=== PATIENT | male | born 1945 | race American Indian/Alaskan Native ===

== ENCOUNTER 2017-09-29 10:08 | Emergency (ER) | payer MEDICARE ==
[2017-09-29 11:37] LABS: Basophils % (Auto) 0.6 % (0.0-1.8); Eosinophils % (Auto) 1.1 % (0.0-4.3); Hematocrit 46.1 % (35.5-45.6); Hemoglobin 15.5 gm/dl (11.8-15.2); Mean Corpuscular HGB Conc 34 % (32-34); Mean Corpuscular Hemoglobin 34 pg (28-32); Mean Corpuscular Volume 100 fl (84-94); Platelet Count 211 K/mm3 (140-440); Red Cell Distribution Width 13.1 % (13.2-15.2); White Blood Count 6.5 K/mm3 (4.5-11.0)
[2017-09-29 11:47] LABS: Alanine Aminotransferase 10 units/L (7-56); Albumin 4.3 g/dL (3.9-5); Albumin/Globulin Ratio 1.1 %; Alkaline Phosphatase 71 units/L (35-129); Anion Gap 14 mmol/L; BUN/Creatinine Ratio 11; Blood Urea Nitrogen 16 mg/dL (9-20); Calcium 9.7 mg/dL (8.4-10.2); Carbon Dioxide 30 mmol/L (22-30); Glucose 100 mg/dL (75-100); Sodium 136 mmol/L (137-145); Total Protein 8.3 g/dL (6.3-8.2)
[2017-09-29 12:27] LABS: Erythrocyte Sedimentation Rate 6 mm/Hr (0-20)
[2017-09-29] MEDS ORDERED: ZOFRAN IM ONE (17:28)
[2017-09-29] MEDS ORDERED: MORPHINE IM ONE (17:28)
--- NOTE | 2017-09-29 17:34 | Emergency Department Report ---
ED Extremity Problem HPI - General Chief complaint: Extremity Injury, Lower Stated complaint: KNEE PAIN Time Seen by Provider: 09/29/17 17:27 Source: patient Mode of arrival: Wheelchair Limitations: Physical Limitation - History of Present Illness MD Complaint: extremity pain, extremity swelling -: Gradual Location: left, knee History of Same: No -: No arthralgia, No fever, No associated dyspnea, No associated chest pain Severity scale (0 -10): 7 Consistency: constant Worsens with: weight bearing - Related Data Allergies Allergy/AdvReac Type Severity Reaction Status Date / Time No Known Allergies Allergy Unverified 09/29/17 11:00 ED Review of Systems ROS: Stated complaint: KNEE PAIN Other details as noted in HPI Comment: All other systems reviewed and negative Constitutional: denies: chills, fever Respiratory: denies: cough, orthopnea, shortness of breath, SOB with exertion, SOB at rest, wheezing Cardiovascular: denies: chest pain, palpitations, dyspnea on exertion, orthopnea , paroxysmal nocturnal dyspnea Gastrointestinal: denies: abdominal pain, nausea, vomiting, diarrhea, constipation, hematemesis, melena, hematochezia Musculoskeletal: joint swelling, other (left knee is swollen, nontender to palpation, full range of motion, no erythema or warmness.). denies: back pain Neurological: denies: headache, weakness, numbness, paresthesias, abnormal gait ED Past Medical Hx - Past Medical History Hx Hypertension: Yes Additional medical history: CAD HYPERLIPIDEMIA CHRONIC RENAL DIESASE STAGE 4 - Surgical History Hx Coronary Stent: Yes Additional Surgical History: HERNIA CATARACT - Social History Smoking Status: Never Smoker Substance Use Type: None ED Physical Exam - General Limitations: No Limitations, Physical Limitation General appearance: alert, in no apparent distress - Head Head exam: Present: atraumatic, normocephalic - Eye Eye exam: Present: normal appearance, PERRL - ENT ENT exam: Present: normal exam, mucous membranes moist - Neck Neck exam: Present: normal inspection, full ROM. Absent: tenderness, meningismus - Respiratory Respiratory exam: Present: normal lung sounds bilaterally, respiratory distress , chest wall tenderness - Cardiovascular Cardiovascular Exam: Present: regular rate, normal rhythm, normal heart sounds - GI/Abdominal GI/Abdominal exam: Present: soft, normal bowel sounds. Absent: distended, tenderness, guarding, rebound, rigid, mass, pulsatile mass - Extremities Exam Extremities exam: Present: full ROM, normal capillary refill, joint swelling, other (left knee swollen, nontender, no warmness or erythema. Full range of motion.). Absent: tenderness, pedal edema, calf tenderness - Back Exam Back exam: Present: normal inspection. Absent: tenderness, CVA tenderness (R), CVA tenderness (L), muscle spasm, paraspinal tenderness, vertebral tenderness - Neurological Exam Neurological exam: Present: alert, oriented X3, CN II-XII intact - Skin Skin exam: Present: warm, intact, normal color. Absent: cyanosis ED Course Vital Signs 09/29/17 09/29/17 11:01 17:34 Temperature 98.2 F 97.9 F Pulse Rate 62 67 Respiratory 20 16 Rate Blood Pressure 182/86 Blood Pressure 174/86 [Right] O2 Sat by Pulse 99 98 Oximetry - Reevaluation(s) Reevaluation #1: 09/29/17 19:37 Patient stated that he is feeling much. ED Medical Decision Making - Lab Data Result diagrams: 09/29/17 11:20 09/29/17 11:20 - Radiology Data Radiology results: image reviewed Left x-ray knee with no acute findings except for effusion. Critical care attestation.: If time is entered above; I have spent that time in minutes in the direct care of this critically ill patient, excluding procedure time. ED Disposition Clinical Impression: Left knee pain Disposition: DC-01 TO HOME OR SELFCARE Is pt being admited?: No Condition: Stable Instructions: Osteoarthritis (ED) Referrals: [facility] [Other] - 3-5 Days
[2017-09-29 19:58] VITALS: BP 184/89
--- NOTE | 2017-09-29 22:25 | XRay Report ---
FINAL REPORT EXAM: XR KNEE 3V LT HISTORY: KNEE PAIN COMPARISON: None available. FINDINGS: Three views of the left knee obtained. Mild narrowing of the medial joint space compartment. Soft tissue swelling. Small suprapatellar effusion. No acute fracture dislocation. IMPRESSION: No acute bony abnormality. Degenerative changes and soft tissue swelling.
== END 2017-09-29 20:12 | disposition home or self-care (01) ==
LOC: ED 10:08
DX: M25.562 Pain in left knee (principal); I10 Essential (primary) hypertension; I25.10 Atherosclerotic heart disease of native coronary artery without angina pectoris; E78.5 Hyperlipidemia, unspecified
CPT/HCPCS: 36415; 73562; 80053; 82140; 84550; 85025; 85652; 87040; 96372; 99283; J2270; J2405